=== PATIENT | male | born 1960 | race Caucasian/White ===

== ENCOUNTER 2021-07-21 13:40 | Emergency (ER) | payer BC ==
[~2021-07-21] VITALS: Ht 175.3 cm; Wt 104.3 kg
[2021-07-21 13:49] VITALS: BP 170/95; TEMP 97.2
== END 2021-07-21 14:51 | disposition home or self-care (01) ==
LOC: ED 13:40
DX: M10.9 Gout, unspecified (principal)
CPT/HCPCS: 96372; 99283; J1885; J2930